=== PATIENT | female | born 1990 | race Caucasian/White ===

== ENCOUNTER 2016-05-10 19:16 | Inpatient (IN) | payer MEDICAID ==
[~2016-05-10] VITALS: Ht 160 cm; Wt 64.9 kg
[~2016-05-10 19:16] MED LIST: LIDOCAINE 2% 5 ML IV ONE
[2016-05-10] MEDS: LACT RINGERS 1,000 ML IV SCH (21:00)
[2016-05-10] MEDS ORDERED: CEFAZOLIN (LD/OB) 100 ML IV PRN (21:15)
[2016-05-10] MEDS ORDERED: LIDOCAINE 1% BUFFERED 1 ML SYR INTRADERM PRN (21:15)
[2016-05-10] MEDS ORDERED: ACETAMINOPHEN 325 MG TAB PO PRN (21:15)
[2016-05-10] MEDS ORDERED: METOCLOPRAMIDE 10 MG/2 ML VIAL IV PUSH PRN (21:15)
[2016-05-10] MEDS ORDERED: ONDANSETRON 4 MG VIAL IV PRN (21:15)
[2016-05-10] MEDS ORDERED: FAMOTIDINE 20 MG INJ IV PRN (21:15)
[2016-05-10] MEDS ORDERED: LIDOCAINE 1% 30 ML PF INFILTRATE ONE (21:15)
[2016-05-10] MEDS ORDERED: FAMOTIDINE 20 MG TAB PO PRN (21:15)
[2016-05-10] MEDS ORDERED: TERBUTALINE 1 MG/ML VIAL SUBQ PRN (21:15)
[2016-05-10] MEDS ORDERED: PROMETHAZINE 25 MG/ML VIAL IV PRN (21:15)
[2016-05-10] MEDS ORDERED: OXYTOCIN 15 UNITS/250 ML NS 250 ML IV SCH ×2 (21:15→22:40)
[2016-05-10] MEDS ORDERED: ALU/MAG/SIM 30 ML UDC PO PRN (21:15)
[2016-05-11] VITALS (11 sets, daily range): BP systolic 114–134; RESP 12–18; TEMP 97.5–98.2; Ht 160 cm; Wt 64.9 kg
[2016-05-11] MEDS ORDERED: ROPIV/FENT 0.2%-2MCG/ML 100 ML EPIDURAL ONE (01:53)
[2016-05-11] MEDS ORDERED: FENTANYL 100 MCG/2 ML AMP ONE (01:54)
[2016-05-11] MEDS ORDERED: LACT RINGERS 500 ML IV ONE (02:25)
[2016-05-11] MEDS ORDERED: SODIUM CHLORIDE 0.9% 500 ML IV PRN (02:25)
[2016-05-11] MEDS ORDERED: FENTANYL 100 MCG/2 ML AMP EPIDURAL ONE (02:25)
[2016-05-11] MEDS ORDERED: LACT RINGERS 500 ML IV PRN (02:25)
[2016-05-11] MEDS: LACT RINGERS 1,000 ML IV SCH ×2 (02:30→07:18)
[2016-05-11] MEDS: ROPIV/FENT 0.2%-2MCG/ML 100 ML EPIDURAL SCH ×2 (06:44→13:53)
[2016-05-11] MEDS ORDERED: **ONLY ANESTEHSIA MAY ORDER OPIATES WHILE ON EPIDURAL XX SCH (08:00)
[2016-05-11] MEDS ORDERED: OXYTOCIN 15 UNITS/250 ML NS 250 ML IV SCH (08:50)
[2016-05-11] MEDS ORDERED: TDaP 0.5 ML VIAL IM.VACC ONE (08:50)
[2016-05-11] MEDS ORDERED: MAG HYDROX 30 ML UDC PO PRN (08:50)
[2016-05-11] MEDS ORDERED: DERMOPLAST SPRAY TOPICAL PRN (08:50)
[2016-05-11] MEDS ORDERED: ASTRINGENT MED PADS 40'S TOPICAL PRN (08:50)
[2016-05-11] MEDS ORDERED: SALINE FLUSH 10 ML FLUSH PRN (08:50)
[2016-05-11] MEDS: DOCUSATE SOD 100 MG CAP PO SCH (09:27)
[2016-05-11] MEDS: Ibuprofen 600 MG TAB PO SCH ×4 (09:27→23:47)
[2016-05-12 01:18] VITALS: BP_SYST 104; RESP 18; TEMP 98.3
[2016-05-12 05:39] VITALS: BP_SYST 98; RESP 18; TEMP 98.3
[2016-05-12] MEDS: Ibuprofen 600 MG TAB PO SCH ×2 (05:49→12:50)
[2016-05-12] MEDS: DOCUSATE SOD 100 MG CAP PO SCH (08:26)
[2016-05-12 09:10] VITALS: BP_SYST 128; RESP 18; TEMP 97.2
[2016-05-12 13:59] VITALS: BP_SYST 121; RESP 18; TEMP 98.4
[2016-05-12 14:00] VITALS: BP_SYST 121; RESP 18; TEMP 98.4
== END 2016-05-12 15:20 | disposition home or self-care (01) | DRG 775 ==
LOC: LDOP 19:16 → LD 19:39 → OB 05-11 11:35
PROVIDERS: ADMIT Obstetrics & Gynecology Reproductive Endocrinology; ATTEND Obstetrics & Gynecology Reproductive Endocrinology
PROC: 10E0XZZ Delivery of Products of Conception, External Approach (ICD-10-PCS; principal; 2016-05-11)
CPT/HCPCS: 85014; 85018; 85025; 86850; 86900; 86901